=== PATIENT | male | born 1950 | race Caucasian/White ===

== ENCOUNTER 2016-11-20 21:31 | Inpatient (IN) | payer MEDICARE ==
[~2016-11-20] VITALS: Ht 172.7 cm; Wt 112.0 kg
[~2016-11-20 21:31] MED LIST: ASPI81TA2 PO; ATOR40TA PO; CAPT25TA3 PO; CARV25TA2 PO; FEBU40TA PO; FLUT1DIS3 IH; MONT10TA22 PO; POTA-10 PO; ROFL500T PO; SPIR25TA4 PO; TIOT18CA3 INH
[2016-11-20] MEDS ORDERED: IPRATROPIUM NEB FS 0.5 MG/2.5 ML AMPUL.NEB ONE (21:41)
[2016-11-20] MEDS ORDERED: ALBUTEROL FS 2.5 MG/3 ML VIAL.NEB ONE (21:41)
[2016-11-20] MEDS ORDERED: ASPIRIN 325 MG TABLET ONE (21:42)
[2016-11-20] MEDS ORDERED: methylPREDNISolone SOD SUCC 125 MG/2ML VIAL ONE (21:42)
[2016-11-20 21:59] LABS: BASOPHILS # (AUTO) 0.1 /CMM (0.0-0.2); BASOPHILS % (AUTO) 1.2 % (0.0-2.0); DIFF TOTAL % 100 %; EOSINOPHILS # (AUTO) 0.1 /CMM (0.0-0.7); EOSINOPHILS % (AUTO) 1.4 % (0.0-6.0); HEMATOCRIT 47 % (39-51); HEMOGLOBIN 15.2 g/dL (13.5-17.5); LYMPHOCYTES # (AUTO) 1.2 /CMM (0.8-4.8); LYMPHOCYTES % (AUTO) 15.3 % (20.0-44.0); MEAN CORPUSCULAR HEMOGLOBIN 30 PG (26.0-33.0); MEAN CORPUSCULAR HGB CONC 33 g/dl (31.0-36.0); MEAN CORPUSCULAR VOLUME 91 fL (80-96); MONOCYTES # (AUTO) 0.9 /CMM (0.1-1.30); NEUTROPHILS # (AUTO) 5.5 /CMM (1.8-8.9); NEUTROPHILS % (AUTO) 71.1 % (43.0-81.0); PLATELET COUNT (AUTO) 225 /CMM (150-450); RED BLOOD CELL COUNT(AUTO) 5.14 MIL/uL (4.5-6.0); WHITE BLOOD COUNT (AUTO) 7.8 K/uL (4.3-11.0)
[2016-11-20] MEDS ORDERED: ALBUTEROL FS 2.5 MG/3 ML VIAL.NEB CONTNEB ONE (22:00)
[2016-11-20] MEDS ORDERED: methylPREDNISolone SOD SUCC 125 MG/2ML VIAL IV ONE (22:00)
[2016-11-20] MEDS ORDERED: IPRATROPIUM NEB FS 0.5 MG/2.5 ML AMPUL.NEB NEB ONE (22:00)
[2016-11-20] MEDS ORDERED: ASPIRIN 325 MG TABLET PO ONE (22:00)
[2016-11-20 22:13] LABS: INR 1.07 (0.87-1.13); PROTHROMBIN TIME 11.6 SECS (9.5-12.7)
[2016-11-20] MEDS ORDERED: FUROSEMIDE 40 MG/4 ML VIAL ONE (22:17)
[2016-11-20 22:19] LABS: TROPONIN I 0.085 ng/mL (0.00-0.056)
[2016-11-20 22:21] LABS: ALBUMIN 3.5 g/dL (3.4-5.0); BILIRUBIN,DIRECT 0.4 mg/dL (0.0-0.2); BILIRUBIN,TOTAL 2.1 mg/dL (0.2-1.0); CALCIUM, SERUM 8.8 mg/dL (8.5-10.1); CREATININE 2.2 mg/dL (0.6-1.3); INDIRECT BILIRUBIN 1.7 mg/dL (0.0-1.1); TOTAL PROTEIN, SERUM 7.1 g/dL (6.4-8.2)
[2016-11-20 22:22] LABS: POTASSIUM 6.3 mmol/L (3.5-5.1)
[2016-11-20] MEDS ORDERED: SODIUM POLYSTYRENE SULFONATE 15 G/60 ML BOTTLE PO ONE (22:30)
[2016-11-20] MEDS ORDERED: DEXTROSE 50%-WATER 50 ML DISP.SYRIN IV ONE (22:30)
[2016-11-20] MEDS ORDERED: ALBUTEROL FS 2.5 MG/3 ML VIAL.NEB NEB ONE (22:30)
[2016-11-20] MEDS ORDERED: FUROSEMIDE 40 MG/4 ML VIAL IV ONE (22:30)
[2016-11-20] MEDS ORDERED: SODIUM BICARBONATE SYR 50 MEQ/50 ML DISP.SYRIN IV ONE (22:30)
[2016-11-20] MEDS ORDERED: INSULIN REGULAR, HUMAN 100 UNIT/ML 10 ML VIAL IV ONE (22:30)
[2016-11-20] MEDS ORDERED: CALCIUM CHLORIDE 1,000 MG/10 ML DISP.SYRIN IV ONE (22:30)
[2016-11-20] MEDS ORDERED: SODIUM POLYSTYRENE SULFONATE 15 G/60 ML BOTTLE ONE (22:32)
[2016-11-20] MEDS ORDERED: CALCIUM CHLORIDE 1,000 MG/10 ML DISP.SYRIN ONE (22:33)
[2016-11-20] MEDS ORDERED: DEXTROSE 50%-WATER 50 ML DISP.SYRIN ONE (22:33)
[2016-11-20] MEDS ORDERED: SODIUM BICARBONATE SYR 50 MEQ/50 ML DISP.SYRIN ONE (22:33)
[2016-11-20] MEDS ORDERED: INSULIN REGULAR, HUMAN 100 UNIT/ML 10 ML VIAL ONE (22:33)
[2016-11-20] MEDS ORDERED: LORAZEPAM INJ 2 MG/ML VIAL ONE (22:36)
[2016-11-20] MEDS ORDERED: LIDOCAINE 2% JEL UROJET 10 ML MM ONE ×2 (22:41→23:00)
[2016-11-20 22:52] VITALS: BP 111/63
[2016-11-20] MEDS ORDERED: LORAZEPAM INJ 2 MG/ML VIAL IV ONE (23:00)
[2016-11-20 23:23] LABS: LACTIC ACID 5.1 mmol/L (0.4-2.0)
[2016-11-20] MEDS ORDERED: ALBUTEROL FS 2.5 MG/3 ML VIAL.NEB NEB PRN (23:30)
[2016-11-20] MEDS ORDERED: IPRATROPIUM NEB FS 0.5 MG/2.5 ML AMPUL.NEB NEB PRN (23:30)
[2016-11-20 23:36] LABS: KETONES,URINE NEGATIVE (NEGATIVE); LEUKOCYTE ESTERASE ,URINE NEGATIVE (NEGATIVE)
[2016-11-20 23:39] LABS: ADD UA MICROSCOPIC YES
[2016-11-20 23:40] LABS: ABG BASE EXCESS -1.9 mmol/L; ABG HCO3 22.8 mmol/L; ABG PCO2 39.2 mmHg (35.0-45.0); ABG PH 7.383 (7.350-7.450); ABG PO2 144.5 mmHg (75.0-100.0); ABG TOTAL HEMOGLOBIN 15.9 G/dL (13.5-18.0); ALLEN TEST Pass; AaDO2 240.2 mmHg; O2Hb 96.6 % (94.0-97.0)
[2016-11-20 23:44] LABS: ADD URINE CULTURE NO; WBC,URINE 0-2 /HPF (0-3)
[2016-11-20 23:57] LABS: *LACTIC ACID REFLEX FLAG YES
[2016-11-21] VITALS (31 sets, daily range): BP systolic 91–124; BP diastolic 45–81
[2016-11-21] MEDS: methylPREDNISolone SOD SUCC 40 MG/ML VIAL IV SCH ×3 (04:28→20:33)
[2016-11-21 06:03] LABS: CALCIUM, SERUM 9.6 mg/dL (8.5-10.1); CREATININE 2.3 mg/dL (0.6-1.3); POTASSIUM 4.4 mmol/L (3.5-5.1)
[2016-11-21 06:29] LABS: LACTIC ACID 1.7 mmol/L (0.4-2.0)
[2016-11-21] MEDS: ATORVASTATIN 40 MG TABLET PO SCH (08:58)
[2016-11-21] MEDS: MONTELUKAST SODIUM (10MG) 10 MG TABLET PO SCH (08:58)
[2016-11-21] MEDS: ASPIRIN 81 MG TAB.CHEW PO SCH (08:59)
[2016-11-21] MEDS: HEPARIN SODIUM, PORCINE 5000 UNITS/1 ML VIAL SQ SCH ×2 (08:59→17:28)
[2016-11-21] MEDS ORDERED: FLUTICASONE/SALMETEROL DISKUS IH SCH (09:00)
[2016-11-21] MEDS ORDERED: CARVEDILOL 12.5 MG TABLET PO SCH (09:00)
[2016-11-21] MEDS ORDERED: FUROSEMIDE 40 MG/4 ML VIAL IV SCH (09:00)
[2016-11-21 09:19] LABS: THYROID STIMULATING HORMONE 1.267 uIU/mL (0.358-3.74)
[2016-11-22] VITALS (17 sets, daily range): BP systolic 98–149; BP diastolic 55–75
[2016-11-22 05:05] LABS: DIFF TOTAL % 100 %; EOSINOPHILS % (AUTO) 0.1 % (0.0-6.0); HEMATOCRIT 48 % (39-51); HEMOGLOBIN 15.2 g/dL (13.5-17.5); LYMPHOCYTES # (AUTO) 0.6 /CMM (0.8-4.8); LYMPHOCYTES % (AUTO) 3.9 % (20.0-44.0); MEAN CORPUSCULAR HEMOGLOBIN 29 PG (26.0-33.0); MEAN CORPUSCULAR HGB CONC 32 g/dl (31.0-36.0); MEAN CORPUSCULAR VOLUME 91 fL (80-96); MONOCYTES % (AUTO) 5.8 % (2.0-12.0); NEUTROPHILS # (AUTO) 15.1 /CMM (1.8-8.9); NEUTROPHILS % (AUTO) 90.2 % (43.0-81.0); PLATELET COUNT (AUTO) 190 /CMM (150-450); RED BLOOD CELL COUNT(AUTO) 5.24 MIL/uL (4.5-6.0); WHITE BLOOD COUNT (AUTO) 16.7 K/uL (4.3-11.0)
[2016-11-22 05:18] LABS: TROPONIN I 0.123 ng/mL (0.00-0.056)
[2016-11-22 05:25] LABS: ALBUMIN 3.5 g/dL (3.4-5.0); BILIRUBIN,TOTAL 2.2 mg/dL (0.2-1.0); CALCIUM, SERUM 9.3 mg/dL (8.5-10.1); POTASSIUM 4.4 mmol/L (3.5-5.1); TOTAL PROTEIN, SERUM 6.9 g/dL (6.4-8.2)
[2016-11-22] MEDS: methylPREDNISolone SOD SUCC 40 MG/ML VIAL IV SCH ×3 (05:30→22:02)
[2016-11-22] MEDS: HEPARIN SODIUM, PORCINE 5000 UNITS/1 ML VIAL SQ SCH ×2 (08:16→17:53)
[2016-11-22] MEDS: ATORVASTATIN 40 MG TABLET PO SCH (08:17)
[2016-11-22] MEDS: MONTELUKAST SODIUM (10MG) 10 MG TABLET PO SCH (08:17)
[2016-11-22] MEDS: ASPIRIN 81 MG TAB.CHEW PO SCH (08:17)
[2016-11-22] MEDS: FUROSEMIDE 100 MG/10 ML VIAL IV SCH ×3 (09:00→17:54)
[2016-11-23] VITALS: BP_SYST 110; BP_SYST 57; BP_DIAS 57; BP_DIAS 61
[2016-11-23 04:00] VITALS: BP 102/58
[2016-11-23] MEDS: methylPREDNISolone SOD SUCC 40 MG/ML VIAL IV SCH ×2 (05:04→12:23)
[2016-11-23 06:45] LABS: BASOPHILS % (AUTO) 0.1 % (0.0-2.0); DIFF TOTAL % 100 %; EOSINOPHILS % (AUTO) 0.1 % (0.0-6.0); HEMATOCRIT 49 % (39-51); HEMOGLOBIN 15.7 g/dL (13.5-17.5); LYMPHOCYTES # (AUTO) 0.8 /CMM (0.8-4.8); LYMPHOCYTES % (AUTO) 4.5 % (20.0-44.0); MEAN CORPUSCULAR HEMOGLOBIN 29 PG (26.0-33.0); MEAN CORPUSCULAR HGB CONC 32 g/dl (31.0-36.0); MEAN CORPUSCULAR VOLUME 91 fL (80-96); MONOCYTES # (AUTO) 0.9 /CMM (0.1-1.30); MONOCYTES % (AUTO) 5.1 % (2.0-12.0); NEUTROPHILS # (AUTO) 16.5 /CMM (1.8-8.9); NEUTROPHILS % (AUTO) 90.2 % (43.0-81.0); PLATELET COUNT (AUTO) 244 /CMM (150-450); RED BLOOD CELL COUNT(AUTO) 5.37 MIL/uL (4.5-6.0); WHITE BLOOD COUNT (AUTO) 18.3 K/uL (4.3-11.0)
[2016-11-23 07:02] LABS: ALBUMIN 3.4 g/dL (3.4-5.0); BILIRUBIN,TOTAL 1.6 mg/dL (0.2-1.0); CALCIUM, SERUM 9.2 mg/dL (8.5-10.1); PHOSPHORUS 4.8 mg/dL (2.5-4.9); POTASSIUM 4.4 mmol/L (3.5-5.1)
[2016-11-23 08:00] VITALS: BP 119/53
[2016-11-23] MEDS: MONTELUKAST SODIUM (10MG) 10 MG TABLET PO SCH (08:19)
[2016-11-23] MEDS: HEPARIN SODIUM, PORCINE 5000 UNITS/1 ML VIAL SQ SCH (08:19)
[2016-11-23] MEDS: ATORVASTATIN 40 MG TABLET PO SCH (08:21)
[2016-11-23] MEDS: ASPIRIN 81 MG TAB.CHEW PO SCH (08:22)
[2016-11-23] MEDS ORDERED: FUROSEMIDE 40 MG TABLET PO SCH (09:00)
[2016-11-23 12:27] VITALS: BP 146/64
== END 2016-11-23 14:01 | disposition home or self-care (01) | DRG 280 ==
LOC: ER 21:32 → ICU 22:44 → TELE 11-22 11:07 → MED 11-23 11:06
PROVIDERS: ADMIT Nurse Practitioner Acute Care; ATTEND Nurse Practitioner Acute Care
PROC: 5A09357 Assistance with Respiratory Ventilation, Less than 24 Consecutive Hours, Continuous Positive Airway Pressure (ICD-10-PCS; principal; 2016-11-21)
DX: I13.0 Hypertensive heart and chronic kidney disease with heart failure and stage 1 through stage 4 chronic kidney disease, or unspecified chronic kidney disease (principal); J96.01 Acute respiratory failure with hypoxia; I21.4 Non-ST elevation (NSTEMI) myocardial infarction; I50.23 Acute on chronic systolic (congestive) heart failure; K72.00 Acute and subacute hepatic failure without coma; N17.9 Acute kidney failure, unspecified; J98.11 Atelectasis; E66.2 Morbid (severe) obesity with alveolar hypoventilation; E87.2 Acidosis; I25.10 Atherosclerotic heart disease of native coronary artery without angina pectoris; K76.1 Chronic passive congestion of liver; N18.9 Chronic kidney disease, unspecified; J44.9 Chronic obstructive pulmonary disease, unspecified; E78.5 Hyperlipidemia, unspecified; E87.5 Hyperkalemia; Z87.891 Personal history of nicotine dependence; Z68.37 Body mass index [BMI] 37.0-37.9, adult; D72.829 Elevated white blood cell count, unspecified; T50.0X5A Adverse effect of mineralocorticoids and their antagonists, initial encounter
CPT/HCPCS: 36415; 36600; 71010-TC; 80048-TC; 80053-TC; 80061-TC; 80076-TC; 81000-TC; 82306; 83605-TC; 83735-TC; 83880; 84100-TC; 84439-TC; 84443-TC; 84484-TC; 85025-TC; 85730-TC; 87040-TC; 87081-TC; 93307-TC; A4606; J1644; J1815; J1940; J2060; J2920; J2930; J3490; Z7610

== ENCOUNTER 2016-12-02 09:10 | Inpatient (IN) | payer MEDICARE ==
[~2016-12-02] VITALS: Ht 177.8 cm; Wt 108.0 kg
[2016-12-02] MEDS ORDERED: methylPREDNISolone SOD SUCC 125 MG/2ML VIAL ONE (09:17)
[2016-12-02] MEDS ORDERED: ALBUTEROL FS 2.5 MG/3 ML VIAL.NEB ONE (09:25)
[2016-12-02] MEDS ORDERED: IPRATROPIUM NEB FS 0.5 MG/2.5 ML AMPUL.NEB ONE (09:25)
[2016-12-02] MEDS ORDERED: NITROGLYCERIN PACKET 1 GM PACKET TD ONE (09:30)
[2016-12-02] MEDS ORDERED: FUROSEMIDE 40 MG/4 ML VIAL IV ONE (09:30)
[2016-12-02] MEDS ORDERED: IPRATROPIUM NEB FS 0.5 MG/2.5 ML AMPUL.NEB NEB ONE (09:30)
[2016-12-02] MEDS ORDERED: ALBUTEROL FS 2.5 MG/3 ML VIAL.NEB NEB ONE (09:30)
[2016-12-02] MEDS ORDERED: methylPREDNISolone SOD SUCC 125 MG/2ML VIAL IV ONE (09:30)
[2016-12-02] MEDS ORDERED: ASPIRIN 325 MG TABLET PO ONE (09:30)
[2016-12-02 09:40] LABS: BASOPHILS # (AUTO) 0.1 /CMM (0.0-0.2); BASOPHILS % (AUTO) 0.5 % (0.0-2.0); DIFF TOTAL % 100 %; EOSINOPHILS % (AUTO) 0.3 % (0.0-6.0); HEMATOCRIT 44 % (39-51); HEMOGLOBIN 14.1 g/dL (13.5-17.5); LYMPHOCYTES # (AUTO) 1.2 /CMM (0.8-4.8); LYMPHOCYTES % (AUTO) 9.2 % (20.0-44.0); MEAN CORPUSCULAR HEMOGLOBIN 29 PG (26.0-33.0); MEAN CORPUSCULAR HGB CONC 33 g/dl (31.0-36.0); MEAN CORPUSCULAR VOLUME 89 fL (80-96); MONOCYTES # (AUTO) 0.9 /CMM (0.1-1.30); NEUTROPHILS # (AUTO) 10.7 /CMM (1.8-8.9); PLATELET COUNT (AUTO) 265 /CMM (150-450); RED BLOOD CELL COUNT(AUTO) 4.89 MIL/uL (4.5-6.0); WHITE BLOOD COUNT (AUTO) 12.9 K/uL (4.3-11.0)
[2016-12-02] MEDS ORDERED: ASPIRIN 325 MG TABLET ONE (09:47)
[2016-12-02] MEDS ORDERED: NITROGLYCERIN PACKET 1 GM PACKET ONE (09:47)
[2016-12-02] MEDS ORDERED: FUROSEMIDE 40 MG/4 ML VIAL ONE (09:48)
[2016-12-02 09:50] LABS: CREATININE 1.9 mg/dL (0.6-1.3); POTASSIUM 5.2 mmol/L (3.5-5.1)
[2016-12-02 09:57] LABS: TROPONIN I 0.046 ng/mL (0.00-0.056)
[2016-12-02] MEDS ORDERED: AZITHROMYCIN 500 MG in IV D5W 250 ML IV ONE (10:00)
[2016-12-02] MEDS ORDERED: CEFTRIAXONE 1GM BAG (ER ONLY) 50 ML IV ONE ×2 (10:00→10:16)
[2016-12-02 10:01] LABS: INR 1.07 (0.87-1.13); PROTHROMBIN TIME 11.6 SECS (9.5-12.7)
[2016-12-02 10:03] LABS: ALBUMIN 2.9 g/dL (3.4-5.0); BILIRUBIN,DIRECT 0.4 mg/dL (0.0-0.2); BILIRUBIN,TOTAL 1.7 mg/dL (0.2-1.0); INDIRECT BILIRUBIN 1.3 mg/dL (0.0-1.1); TOTAL PROTEIN, SERUM 6.8 g/dL (6.4-8.2)
[2016-12-02 10:07] LABS: LACTIC ACID 1.8 mmol/L (0.4-2.0)
[2016-12-02] MEDS ORDERED: FURO40TA5 PO (10:13)
[2016-12-02] MEDS ORDERED: IV SET PRIMARY PUMP SET 1 EA INFUS.SET MC ONE ×3 (10:16→13:23)
[2016-12-02] MEDS ORDERED: MAGNESIUM HYDROXIDE 30 ML UDC PO PRN (10:30)
[2016-12-02] MEDS ORDERED: HYDROCODONE/APAP 5/325MG 1 EACH TABLET PO PRN (10:30)
[2016-12-02] MEDS ORDERED: ONDANSETRON HCL/PF 4 MG/2 ML VIAL IVP PRN (10:30)
[2016-12-02] MEDS ORDERED: Z GUARD REMEDY 2 OZ OINT TP PRN (10:30)
[2016-12-02] MEDS ORDERED: MAG HYDROX/AL HYDROX/SIMETH 30 ML UDC PO PRN (10:30)
[2016-12-02] MEDS ORDERED: ACETAMINOPHEN 325 MG TABLET PO PRN (10:30)
[2016-12-02] MEDS ORDERED: BUMETANIDE INJ 8 MG in IV NS 0.9% 48 ML IV ONE (13:00)
[2016-12-02] MEDS: methylPREDNISolone SOD SUCC 40 MG/ML VIAL IV SCH ×2 (13:21→17:34)
[2016-12-02 16:00] VITALS: BP 115/58
[2016-12-02] MEDS ORDERED: CAPTOPRIL 12.5 MG TABLET PO SCH (17:00)
[2016-12-02] MEDS: CARVEDILOL 12.5 MG TABLET PO SCH (17:36)
[2016-12-02] MEDS: IPRATROPIUM NEB FS 0.5 MG/2.5 ML AMPUL.NEB NEB SCH (20:15)
[2016-12-02 20:25] VITALS: BP 101/61
[2016-12-02] MEDS ORDERED: ZOLPIDEM TARTRATE 5 MG TABLET PO PRN (22:00)
[2016-12-03] VITALS: BP 103/56
[2016-12-03 01:03] LABS: KETONES,URINE NEGATIVE (NEGATIVE); LEUKOCYTE ESTERASE ,URINE TRACE (NEGATIVE)
[2016-12-03 01:10] LABS: ADD UA MICROSCOPIC YES
[2016-12-03 01:14] LABS: RBC,URINE NONE SEEN /HPF (0-2)
[2016-12-03 01:15] LABS: ADD URINE CULTURE NO; HYALINE CASTS, URINE Rare /LPF (None Seen); MUCUS,URINE Rare /LPF (None Seen); WBC,URINE 0-3 /HPF (0-3)
[2016-12-03] MEDS: IPRATROPIUM NEB FS 0.5 MG/2.5 ML AMPUL.NEB NEB SCH ×4 (01:42→20:39)
[2016-12-03 04:07] VITALS: BP 92/51
[2016-12-03 06:41] VITALS: BP 107/52
[2016-12-03 07:07] LABS: BASOPHILS % (AUTO) 0.1 % (0.0-2.0); DIFF TOTAL % 100 %; EOSINOPHILS % (AUTO) 0.1 % (0.0-6.0); HEMATOCRIT 42 % (39-51); HEMOGLOBIN 13.7 g/dL (13.5-17.5); LYMPHOCYTES # (AUTO) 0.7 /CMM (0.8-4.8); LYMPHOCYTES % (AUTO) 5.2 % (20.0-44.0); MEAN CORPUSCULAR HEMOGLOBIN 29 PG (26.0-33.0); MEAN CORPUSCULAR HGB CONC 33 g/dl (31.0-36.0); MEAN CORPUSCULAR VOLUME 89 fL (80-96); MONOCYTES # (AUTO) 0.2 /CMM (0.1-1.30); MONOCYTES % (AUTO) 1.5 % (2.0-12.0); NEUTROPHILS # (AUTO) 12.2 /CMM (1.8-8.9); NEUTROPHILS % (AUTO) 93.1 % (43.0-81.0); PLATELET COUNT (AUTO) 263 /CMM (150-450); RED BLOOD CELL COUNT(AUTO) 4.75 MIL/uL (4.5-6.0); WHITE BLOOD COUNT (AUTO) 13.1 K/uL (4.3-11.0)
[2016-12-03 07:45] LABS: CALCIUM, SERUM 9.4 mg/dL (8.5-10.1); PHOSPHORUS 4.2 mg/dL (2.5-4.9); POTASSIUM 4.6 mmol/L (3.5-5.1)
[2016-12-03 08:00] VITALS: BP 133/74
[2016-12-03 08:06] LABS: TROPONIN I 0.047 ng/mL (0.00-0.056)
[2016-12-03] MEDS: CARVEDILOL 12.5 MG TABLET PO SCH ×2 (08:32→17:16)
[2016-12-03] MEDS: AZITHROMYCIN 250 MG TABLET PO SCH (08:32)
[2016-12-03] MEDS: ATORVASTATIN 40 MG TABLET PO SCH (08:32)
[2016-12-03] MEDS: PANTOPRAZOLE 40 MG TABLET.DR PO SCH (08:32)
[2016-12-03] MEDS: ASPIRIN 81 MG TAB.CHEW PO SCH (08:33)
[2016-12-03] MEDS: methylPREDNISolone SOD SUCC 40 MG/ML VIAL IV SCH ×2 (08:33→17:15)
[2016-12-03] MEDS: MONTELUKAST SODIUM (10MG) 10 MG TABLET PO SCH (08:33)
[2016-12-03] MEDS: FLUTICASONE/SALMETEROL DISKUS IH SCH (08:37)
[2016-12-03] MEDS: CEFTRIAXONE 1 G in IV D5W 50 ML IV SCH (08:37)
[2016-12-03 08:53] LABS: ALBUMIN 2.7 g/dL (3.4-5.0); BILIRUBIN,TOTAL 1.3 mg/dL (0.2-1.0); TOTAL PROTEIN, SERUM 6.4 g/dL (6.4-8.2)
[2016-12-03] MEDS ORDERED: SECONDARY IV SET 1 EA INFUS.SET MC ONE (08:55)
[2016-12-03] MEDS ORDERED: SPIRONOLACTONE 25 MG TABLET PO SCH (09:00)
[2016-12-03] MEDS ORDERED: FUROSEMIDE 40 MG/4 ML VIAL IV SCH (09:00)
[2016-12-03 16:00] VITALS: BP 119/70
[2016-12-03 20:00] VITALS: BP 115/65
[2016-12-04] MEDS: IPRATROPIUM NEB FS 0.5 MG/2.5 ML AMPUL.NEB NEB SCH ×3 (01:30→13:30)
[2016-12-04 07:41] LABS: BASOPHILS % (AUTO) 0.2 % (0.0-2.0); DIFF TOTAL % 100 %; EOSINOPHILS % (AUTO) 0.2 % (0.0-6.0); HEMATOCRIT 43 % (39-51); HEMOGLOBIN 14.1 g/dL (13.5-17.5); LYMPHOCYTES # (AUTO) 0.7 /CMM (0.8-4.8); LYMPHOCYTES % (AUTO) 3.4 % (20.0-44.0); MEAN CORPUSCULAR HEMOGLOBIN 29 PG (26.0-33.0); MEAN CORPUSCULAR HGB CONC 33 g/dl (31.0-36.0); MEAN CORPUSCULAR VOLUME 89 fL (80-96); MONOCYTES # (AUTO) 0.7 /CMM (0.1-1.30); MONOCYTES % (AUTO) 3.7 % (2.0-12.0); NEUTROPHILS # (AUTO) 18.5 /CMM (1.8-8.9); NEUTROPHILS % (AUTO) 92.5 % (43.0-81.0); PLATELET COUNT (AUTO) 309 /CMM (150-450); RED BLOOD CELL COUNT(AUTO) 4.88 MIL/uL (4.5-6.0)
[2016-12-04 08:00] VITALS: BP 115/72
[2016-12-04 08:03] LABS: CALCIUM, SERUM 9.8 mg/dL (8.5-10.1); CREATININE 1.8 mg/dL (0.6-1.3); POTASSIUM 4.9 mmol/L (3.5-5.1)
[2016-12-04] MEDS: methylPREDNISolone SOD SUCC 40 MG/ML VIAL IV SCH (08:27)
[2016-12-04] MEDS: CEFTRIAXONE 1 G in IV D5W 50 ML IV SCH (08:27)
[2016-12-04] MEDS: FLUTICASONE/SALMETEROL DISKUS IH SCH (08:39)
[2016-12-04 08:40] VITALS: BP 154/84
[2016-12-04] MEDS: CARVEDILOL 12.5 MG TABLET PO SCH (08:40)
[2016-12-04] MEDS: ATORVASTATIN 40 MG TABLET PO SCH (08:40)
[2016-12-04] MEDS: AZITHROMYCIN 250 MG TABLET PO SCH (08:40)
[2016-12-04] MEDS: MONTELUKAST SODIUM (10MG) 10 MG TABLET PO SCH (08:40)
[2016-12-04] MEDS: PANTOPRAZOLE 40 MG TABLET.DR PO SCH (08:40)
[2016-12-04] MEDS: ASPIRIN 81 MG TAB.CHEW PO SCH (08:40)
[2016-12-04] MEDS ORDERED: FUROSEMIDE 40 MG TABLET PO SCH (09:00)
[2016-12-04] MEDS ORDERED: ALBU1.257 NEB (10:14)
[2016-12-04] MEDS ORDERED: LEVO500T15 PO (10:15)
[2016-12-04] MEDS ORDERED: PRED20TA PO (10:23)
== END 2016-12-04 13:30 | disposition home or self-care (01) | DRG 291 ==
LOC: ER 09:13 → EDBD 09:13 → TELE 10:34 → MED 12-03 11:04
PROVIDERS: ADMIT Student in an Organized Health Care Education/Training Program; ATTEND Student in an Organized Health Care Education/Training Program
DX: I13.0 Hypertensive heart and chronic kidney disease with heart failure and stage 1 through stage 4 chronic kidney disease, or unspecified chronic kidney disease (principal); J15.9 Unspecified bacterial pneumonia; J96.01 Acute respiratory failure with hypoxia; I50.23 Acute on chronic systolic (congestive) heart failure; N17.0 Acute kidney failure with tubular necrosis; J44.1 Chronic obstructive pulmonary disease with (acute) exacerbation; E66.2 Morbid (severe) obesity with alveolar hypoventilation; J44.0 Chronic obstructive pulmonary disease with (acute) lower respiratory infection; E11.22 Type 2 diabetes mellitus with diabetic chronic kidney disease; N18.9 Chronic kidney disease, unspecified; E87.5 Hyperkalemia; E78.5 Hyperlipidemia, unspecified; I25.10 Atherosclerotic heart disease of native coronary artery without angina pectoris; I27.2 Other secondary pulmonary hypertension; Z87.891 Personal history of nicotine dependence; Z68.34 Body mass index [BMI] 34.0-34.9, adult; D72.829 Elevated white blood cell count, unspecified
CPT/HCPCS: 36415; 71010-TC; 80048-TC; 80053-TC; 80061-TC; 80076-TC; 81000-TC; 83605-TC; 83735-TC; 83880; 84100-TC; 84484-TC; 85025-TC; 85730-TC; 87040-TC; 87070-TC; 87081-TC; 87400; 94799-TC; A4216; A4606; J0456; J0696; J1940; J2920; J2930; J3490; J7060; Z7610

== ENCOUNTER 2018-12-26 18:19 | Inpatient (IN) | payer MEDICARE ==
[~2018-12-26] VITALS: Ht 167.6 cm; Wt 112.6 kg
[~2018-12-26 18:19] MED LIST changes: +ALBU1.257 NEB; +ASPI-1169 PO; -ASPI81TA2 PO; -CAPT25TA3 PO; +FURO40TA5 PO; +LEVO500T75 PO; +PRED20TA PO; -SPIR25TA4 PO; +SPIR25TA6 PO
[2018-12-26] MEDS ORDERED: methylPREDNISolone SOD SUCC 125 MG/2ML VIAL ONE (18:57)
[2018-12-26] MEDS ORDERED: methylPREDNISolone SOD SUCC 125 MG/2ML VIAL IV ONE (19:00)
[2018-12-26] MEDS ORDERED: IPRATROPIUM NEB FS 0.5 MG/2.5 ML AMPUL.NEB NEB ONE (19:00)
[2018-12-26] MEDS ORDERED: ALBUTEROL FS 2.5 MG/3 ML VIAL.NEB NEB ONE (19:00)
[2018-12-26 19:04] LABS: BASOPHILS # (AUTO) 0.1 /CMM (0.0-0.2); BASOPHILS % (AUTO) 1.2 % (0.0-2.0); HEMATOCRIT 44 % (39-51); HEMOGLOBIN 14.5 g/dL (13.5-17.5); LYMPHOCYTES # (AUTO) 1.1 /CMM (0.8-4.8); LYMPHOCYTES % (AUTO) 13.7 % (20.0-44.0); MEAN CORPUSCULAR HGB CONC 33 g/dl (31.0-36.0); MEAN CORPUSCULAR VOLUME 93 fL (80-96); MONOCYTES # (AUTO) 1.4 /CMM (0.1-1.30); MONOCYTES % (AUTO) 18.3 % (2.0-12.0); NEUTROPHILS % (AUTO) 64.8 % (43.0-81.0); PLATELET COUNT (AUTO) 193 /CMM (150-450); RED BLOOD CELL COUNT(AUTO) 4.78 MIL/uL (4.5-6.0); WHITE BLOOD COUNT (AUTO) 7.7 K/uL (4.3-11.0)
[2018-12-26] MEDS ORDERED: ALBUTEROL FS 2.5 MG/3 ML VIAL.NEB ONE (19:11)
[2018-12-26] MEDS ORDERED: IPRATROPIUM NEB FS 0.5 MG/2.5 ML AMPUL.NEB ONE (19:11)
[2018-12-26 19:13] LABS: CALCIUM, SERUM 9.3 mg/dL (8.5-10.1); CREATININE 2.2 mg/dL (0.6-1.3); POTASSIUM 5.2 mmol/L (3.5-5.1)
[2018-12-26 19:26] LABS: ALBUMIN 3.5 g/dL (3.4-5.0); BILIRUBIN,DIRECT 0.3 mg/dL (0.0-0.2); BILIRUBIN,TOTAL 1.4 mg/dL (0.2-1.0)
[2018-12-26] MEDS ORDERED: FUROSEMIDE 40 MG/4 ML VIAL ONE (20:11)
[2018-12-26] MEDS ORDERED: NITROGLYCERIN PACKET 1 GM PACKET ONE (20:11)
[2018-12-26] MEDS ORDERED: NITROGLYCERIN PACKET 1 GM PACKET TD ONE (20:30)
[2018-12-26] MEDS ORDERED: FUROSEMIDE 40 MG/4 ML VIAL IV ONE (20:30)
[2018-12-26 21:00] VITALS: BP 98/56
[2018-12-26] MEDS ORDERED: HYDROCODONE/APAP 5/325MG 1 EACH TABLET PO PRN (22:00)
[2018-12-26] MEDS ORDERED: MORPHINE SULFATE INJ 2 MG/ML DISP.SYRIN IV PRN (22:00)
[2018-12-26] MEDS ORDERED: MAG HYDROX/AL HYDROX/SIMETH 30 ML UDC PO PRN ×2 (22:00)
[2018-12-26] MEDS ORDERED: Z GUARD REMEDY 2 OZ OINT TP PRN (22:00)
[2018-12-26] MEDS ORDERED: ACETAMINOPHEN 325 MG TABLET PO PRN (22:00)
[2018-12-26] MEDS ORDERED: ONDANSETRON HCL/PF 4 MG/2 ML VIAL IVP PRN ×2 (22:00)
[2018-12-26] MEDS ORDERED: NITROGLYCERIN 0.4 MG/TAB BOTTLE SL PRN (22:00)
[2018-12-26] MEDS ORDERED: MAGNESIUM HYDROXIDE 30 ML UDC PO PRN (22:00)
[2018-12-26] MEDS ORDERED: DOCUSATE SODIUM 100 MG CAPSULE PO PRN (22:00)
[2018-12-26] MEDS ORDERED: WARF5TAB77 PO (23:54)
[2018-12-27] VITALS (7 sets, daily range): BP systolic 97–112; BP diastolic 56–69
[2018-12-27] MEDS: ALBUTEROL FS 2.5 MG/0.5 ML VIAL.NEB NEB SCH ×4 (01:41→19:23)
[2018-12-27] MEDS: IPRATROPIUM NEB FS 0.5 MG/2.5 ML AMPUL.NEB NEB SCH ×4 (01:42→19:23)
[2018-12-27 03:34] LABS: BASOPHILS % (AUTO) 0.5 % (0.0-2.0); EOSINOPHILS % (AUTO) 0.1 % (0.0-6.0); HEMATOCRIT 43 % (39-51); HEMOGLOBIN 14.3 g/dL (13.5-17.5); LYMPHOCYTES # (AUTO) 0.5 /CMM (0.8-4.8); LYMPHOCYTES % (AUTO) 7.8 % (20.0-44.0); MEAN CORPUSCULAR HGB CONC 33 g/dl (31.0-36.0); MEAN CORPUSCULAR VOLUME 91 fL (80-96); MONOCYTES # (AUTO) 0.1 /CMM (0.1-1.30); MONOCYTES % (AUTO) 1.9 % (2.0-12.0); NEUTROPHILS # (AUTO) 5.5 /CMM (1.8-8.9); NEUTROPHILS % (AUTO) 89.7 % (43.0-81.0); PLATELET COUNT (AUTO) 182 /CMM (150-450); RED BLOOD CELL COUNT(AUTO) 4.69 MIL/uL (4.5-6.0); WHITE BLOOD COUNT (AUTO) 6.2 K/uL (4.3-11.0)
[2018-12-27 03:49] LABS: CALCIUM, SERUM 9.3 mg/dL (8.5-10.1); CREATININE 2.1 mg/dL (0.6-1.3); MAGNESIUM 1.7 mg/dL (1.8-2.4); POTASSIUM 5.3 mmol/L (3.5-5.1)
[2018-12-27 03:59] LABS: THYROID STIMULATING HORMONE 0.914 uIU/mL (0.358-3.74)
[2018-12-27] MEDS ORDERED: IV NS 0.9% 500 ML IV ONE (05:00)
[2018-12-27] MEDS ORDERED: FUROSEMIDE 40 MG/4 ML VIAL IV SCH (09:00)
[2018-12-27] MEDS ORDERED: SPIRONOLACTONE 25 MG TABLET PO SCH (09:00)
[2018-12-27] MEDS ORDERED: ASPIRIN 325 MG TABLET PO SCH (09:00)
[2018-12-27] MEDS: CARVEDILOL 12.5 MG TABLET PO SCH ×2 (09:00→20:03)
[2018-12-27] MEDS ORDERED: FLUTICASONE/SALMETEROL DISKUS IH SCH (09:00)
[2018-12-27] MEDS: methylPREDNISolone SOD SUCC 40 MG/ML VIAL IV SCH ×2 (09:14→16:23)
[2018-12-27] MEDS: PANTOPRAZOLE 40 MG TABLET.DR PO SCH (09:14)
[2018-12-27] MEDS: MONTELUKAST SODIUM (10MG) 10 MG TABLET PO SCH (09:15)
[2018-12-27] MEDS: ATORVASTATIN 40 MG TABLET PO SCH (09:15)
[2018-12-27] MEDS: FLUTICASONE/VILANTEROL 1 EACH BLST.W.DEV IH SCH (09:16)
[2018-12-27] MEDS: Magnesium 1GM/D5W 100ML PREMIX 100 ML IV SCH ×2 (12:37→13:43)
[2018-12-27] MEDS: FEBUXOSTAT 40 MG PO SCH (14:32)
[2018-12-27] MEDS: FUROSEMIDE 40 MG TABLET PO SCH (16:25)
[2018-12-27] MEDS: CLOTRIMAZOLE/BETAMETASONE DIPROPIONATE 15 GM TUBE TP SCH (16:26)
[2018-12-27] MEDS ORDERED: WARFARIN SODIUM 5 MG TABLET PO SCH (17:00)
[2018-12-28 00:18] VITALS: BP 121/71
[2018-12-28] MEDS: IPRATROPIUM NEB FS 0.5 MG/2.5 ML AMPUL.NEB NEB SCH ×2 (01:01→08:37)
[2018-12-28] MEDS: ALBUTEROL FS 2.5 MG/0.5 ML VIAL.NEB NEB SCH ×2 (01:01→08:37)
[2018-12-28 04:37] VITALS: BP 106/66
[2018-12-28 07:45] LABS: CALCIUM, SERUM 10.3 mg/dL (8.5-10.1); CREATININE 1.8 mg/dL (0.6-1.3); MAGNESIUM 2.3 mg/dL (1.8-2.4); POTASSIUM 4.8 mmol/L (3.5-5.1)
[2018-12-28 08:00] VITALS: BP_SYST 114; BP_SYST 117; BP_DIAS 59; BP_DIAS 67
[2018-12-28] MEDS: MONTELUKAST SODIUM (10MG) 10 MG TABLET PO SCH (10:03)
[2018-12-28] MEDS: methylPREDNISolone SOD SUCC 40 MG/ML VIAL IV SCH (10:03)
[2018-12-28] MEDS: PANTOPRAZOLE 40 MG TABLET.DR PO SCH (10:03)
[2018-12-28] MEDS: FUROSEMIDE 40 MG TABLET PO SCH (10:04)
[2018-12-28] MEDS: ATORVASTATIN 40 MG TABLET PO SCH (10:04)
[2018-12-28 10:05] VITALS: BP 117/67
[2018-12-28] MEDS: CARVEDILOL 12.5 MG TABLET PO SCH (10:05)
[2018-12-28] MEDS: FEBUXOSTAT 40 MG PO SCH (10:06)
[2018-12-28] MEDS: FLUTICASONE/VILANTEROL 1 EACH BLST.W.DEV IH SCH (10:07)
[2018-12-28] MEDS: CLOTRIMAZOLE/BETAMETASONE DIPROPIONATE 15 GM TUBE TP SCH (10:11)
== END 2018-12-28 11:45 | disposition home or self-care (01) | DRG 291 ==
LOC: ER 18:22 → TELE 20:18 → MED 12-28 09:58
PROVIDERS: ADMIT Registered Nurse; ATTEND Nurse Practitioner Acute Care
DX: I13.0 Hypertensive heart and chronic kidney disease with heart failure and stage 1 through stage 4 chronic kidney disease, or unspecified chronic kidney disease (principal); J96.20 Acute and chronic respiratory failure, unspecified whether with hypoxia or hypercapnia; I50.43 Acute on chronic combined systolic (congestive) and diastolic (congestive) heart failure; N17.9 Acute kidney failure, unspecified; J44.1 Chronic obstructive pulmonary disease with (acute) exacerbation; Z68.41 Body mass index [BMI] 40.0-44.9, adult; N18.9 Chronic kidney disease, unspecified; E87.5 Hyperkalemia; I25.10 Atherosclerotic heart disease of native coronary artery without angina pectoris; E78.5 Hyperlipidemia, unspecified; E66.01 Morbid (severe) obesity due to excess calories; Z87.891 Personal history of nicotine dependence; I35.0 Nonrheumatic aortic (valve) stenosis; I48.0 Paroxysmal atrial fibrillation; Z79.01 Long term (current) use of anticoagulants; Z79.51 Long term (current) use of inhaled steroids; Z79.82 Long term (current) use of aspirin; Z79.899 Other long term (current) drug therapy; Z99.81 Dependence on supplemental oxygen
CPT/HCPCS: 36415; 71045-TC; 80048-TC; 80061-TC; 80076-TC; 83605-TC; 83735-TC; 83880; 84100-TC; 84443-TC; 84484-TC; 85025-TC; 85610-TC; 85730-TC; 87040-TC; 87081-TC; 93307-TC; 94799-TC; G0378; J1940; J2920; J2930; J3475; J7040

== ENCOUNTER 2022-07-27 08:14 | Inpatient (IN) | payer MEDICARE, OTHER ==
[~2022-07-27] VITALS: Ht 167.6 cm; Wt 97.5 kg
[~2022-07-27 08:14] MED LIST changes: -ALBU1.257 NEB; -ASPI-1169 PO; -LEVO500T75 PO; -POTA-10 PO; -PRED20TA PO; -ROFL500T PO; -SPIR25TA6 PO; -TIOT18CA3 INH; +WARF5TAB PO
--- NOTE | 2022-07-27 08:14 | NUR ---
BIB RA88 FROM HOME C/O L SIDED ABDOMINAL PAIN 01/18 +N/V XWEEKS WAS DIAGNOSED WITH KIDNEY INFECTION AND STATE PAIN HAS GOTTEN WORSE. PT STATED HE TOOKE TYLENOL THIS MORNING AT 0600. LAST NIGHT PAIN WAS 7/10. PT ATTCHED TO MONITOR, VITALS ARE WITHIN NORMAL LIMITS. WARM ABLNKET PROVIDED FOR COMFORT. URINAL AT BEDSIDE, PT UNABLE TO PROVIDE URINE AT THIS TIME.
[2022-07-27] MEDS ORDERED: ACETAMINOPHEN ES 500 MG TABLET ONE (08:28)
[2022-07-27] MEDS ORDERED: ACETAMINOPHEN ES 500 MG TABLET PO ONE (08:30)
[2022-07-27] MEDS ORDERED: IV NS 0.9% 1,000 ML BAG IV ONE (08:30)
--- NOTE | 2022-07-27 08:30 | NUR ---
IV ESTABLISHED R HAND 20G. LABS DRAWN AND COLLECTED AT BEDSIDE.
[2022-07-27 08:47] LABS: BASOPHILS % (AUTO) 0.5 % (0.0-2.0); EOSINOPHILS % (AUTO) 1.9 % (0.0-6.0); HEMATOCRIT 51 % (39-51); HEMOGLOBIN 16.7 g/dL (13.5-17.5); LYMPHOCYTES # (AUTO) 1.3 K/uL (0.8-4.8); LYMPHOCYTES % (AUTO) 14.6 % (20.0-44.0); MEAN CORPUSCULAR HGB CONC 33 g/dl (31.0-36.0); MEAN CORPUSCULAR VOLUME 91 fL (80-96); MONOCYTES # (AUTO) 0.9 K/uL (0.1-1.30); MONOCYTES % (AUTO) 10.4 % (2.0-12.0); NEUTROPHILS # (AUTO) 6.6 K/uL (1.8-8.9); NEUTROPHILS % (AUTO) 72.6 % (43.0-81.0); PLATELET COUNT (AUTO) 162 K/uL (150-450); RED BLOOD CELL COUNT(AUTO) 5.55 MIL/uL (4.5-6.0); WHITE BLOOD COUNT (AUTO) 9.1 K/uL (4.3-11.0)
[2022-07-27 08:55] LABS: CALCIUM, SERUM 9.9 mg/dL (8.5-10.1); CARBON DIOXIDE 26 mmol/L (21-32); CHLORIDE 102 mmol/L (98-107); CREATININE 1.8 mg/dL (0.6-1.3); GLUCOSE 151 mg/dL (74-106); POTASSIUM 4.4 mmol/L (3.5-5.1); SODIUM SERUM 133 mmol/L (136-145); UREA NITROGEN, BLOOD 44 mg/dL (7-18)
[2022-07-27 09:02] LABS: ALANINE AMINOTRANSFERASE 21 U/L (12-78); ALBUMIN 3.8 g/dL (3.4-5.0); ALKALINE PHOSPHATASE 105 U/L (46-116); ASPARTATE AMINOTRANSFERASE 13 U/L (15-37); BILIRUBIN,DIRECT 0.2 mg/dL (0.0-0.2); BILIRUBIN,TOTAL 0.9 mg/dL (0.2-1.0); TOTAL PROTEIN, SERUM 7.7 g/dL (6.4-8.2)
[2022-07-27 09:03] LABS: LIPASE 1843 U/L (73-393)
--- NOTE | 2022-07-27 09:29 | NUR ---
PT TAKEN TO CT VIA JESSICA
[2022-07-27] MEDS ORDERED: FAMOTIDINE/PF INJ 20 MG/2 ML VIAL IV ONE ×2 (09:30→09:50)
[2022-07-27] MEDS ORDERED: ONDANSETRON HCL/PF 4 MG/2 ML VIAL IVP ONE (09:30)
[2022-07-27] MEDS ORDERED: LIDOCAINE VISCOUS 2% UD 15 ML UDC MM ONE (09:30)
[2022-07-27] MEDS ORDERED: MAG HYDROX/AL HYDROX/SIMETH 30 ML UDC PO ONE (09:30)
[2022-07-27] MEDS ORDERED: ONDANSETRON HCL/PF 4 MG/2 ML VIAL ONE (09:50)
[2022-07-27] MEDS ORDERED: MAG HYDROX/AL HYDROX/SIMETH 30 ML UDC ONE (09:50)
[2022-07-27] MEDS ORDERED: LIDOCAINE VISCOUS 2% UD 15 ML UDC ONE (09:50)
[2022-07-27 09:58] LABS: BILIRUBIN,URINE NEGATIVE (NEGATIVE); COLOR,URINE YELLOW (YELLOW); LEUKOCYTE ESTERASE ,URINE MODERATE (NEGATIVE); NITRITE, URINE NEGATIVE (NEGATIVE); PROTEIN,URINE NEGATIVE (NEGATIVE); UGLUCOSE NEGATIVE (NEGATIVE); UROBILINOGEN,URINE 0.2 EU/dL (0.2)
[2022-07-27 10:23] LABS: WBC,URINE 21-50 /HPF (0-3)
[2022-07-27 10:24] LABS: BACTERIA,URINE Few /HPF (None Seen); SQUAMOUS EPITHELIAL CELL,UR Few /HPF (None Seen)
--- NOTE | 2022-07-27 10:32 | NUR ---
MOVE SHEET SUBMITTED.
--- NOTE | 2022-07-27 10:39 | NUR ---
COVID SWAB DONE SENT TO LAB
[2022-07-27] MEDS ORDERED: ROFL250T PO (10:51)
[2022-07-27] MEDS ORDERED: ZINC50TA65 PO (10:51)
[2022-07-27] MEDS ORDERED: LISI20TA30 PO (10:51)
[2022-07-27] MEDS ORDERED: WARF-58 PO (10:51)
[2022-07-27] MEDS ORDERED: ALLO100T PO (10:51)
[2022-07-27] MEDS ORDERED: METO2.5T7 PO (10:51)
[2022-07-27] MEDS ORDERED: CHOL100043 PO (10:51)
[2022-07-27] MEDS ORDERED: POTA10TA11 PO (10:51)
[2022-07-27] MEDS ORDERED: MORPHINE SULFATE INJ 2 MG/ML DISP.SYRIN IV PRN (11:30)
[2022-07-27] MEDS ORDERED: Z GUARD REMEDY 4 OZ OINT TP PRN (11:30)
[2022-07-27] MEDS ORDERED: TEMAZEPAM 15 MG CAPSULE PO PRN (11:30)
[2022-07-27] MEDS ORDERED: MAGNESIUM HYDROXIDE 30 ML UDC PO PRN (11:30)
[2022-07-27] MEDS ORDERED: MAG HYDROX/AL HYDROX/SIMETH 30 ML UDC PO PRN (11:30)
[2022-07-27] MEDS ORDERED: ONDANSETRON HCL/PF 4 MG/2 ML VIAL IVP PRN (11:30)
[2022-07-27] MEDS ORDERED: IV NS 0.9% 1,000 ML IV PRN (11:30)
[2022-07-27] MEDS ORDERED: CEFTRIAXONE 1GM BAG (ER ONLY) 50 ML IV ONE (11:35)
[2022-07-27] MEDS: CEFTRIAXONE 1 G in IV D5W 50 ML IV SCH (11:37)
[2022-07-27] MEDS ORDERED: CEFTRIAXONE 1 G in IV D5W 50 ML IV ONE (13:00)
--- NOTE | 2022-07-27 16:17 | NUR ---
ROOM 320-1
--- NOTE | 2022-07-27 16:24 | NUR ---
PT REPORT GIVEN TO CHANDNI RAINEY
--- NOTE | 2022-07-27 17:48 | NUR ---
PT TRANSFERRED TO 320 VIA GURNEY. WARM HANDOFF GIVEN TO RN ASSIGNED.
--- NOTE | 2022-07-27 18:54 | NUR ---
RN NOTES PATIENT CAME IN AROUND 181 VIA GURNEY FOR ER , BODY ASSESSMENT DONE AND V/S TAKEN , BP 129/85, P 84, O2SAT 96 %ROOM AIR , 98 TEMP , RR 18
--- NOTE | 2022-07-27 19:30 | NUR ---
RN NOTE PT RECEIVED IN BED PT ROOM AIR TOLERATING WELL NO PAIN OR DISCOMFORT. PER PT HE IS ABLE TO TOLERATE CLEAR LIQUIDS AT THIS TIME HAD DINNER WITH NO N/V. NO PAIN OR DISCOMFORT REPORTED. PT PLACE ON TELE MONITOR V PACING. L HAND 20G S/L IV ACCESS. CALL LIGHT WITHIN REACH. TABLE WITHIN REACH.
[2022-07-27 20:00] VITALS: BP 123/57
[2022-07-28] VITALS: BP 106/65
[2022-07-28 04:00] VITALS: BP 111/77
[2022-07-28 06:06] LABS: BASOPHILS # (AUTO) 0.1 K/uL (0.0-0.2); EOSINOPHILS % (AUTO) 3.9 % (0.0-6.0); HEMATOCRIT 47 % (39-51); HEMOGLOBIN 15.2 g/dL (13.5-17.5); LYMPHOCYTES # (AUTO) 1.3 K/uL (0.8-4.8); LYMPHOCYTES % (AUTO) 17.2 % (20.0-44.0); MEAN CORPUSCULAR HGB CONC 33 g/dl (31.0-36.0); MEAN CORPUSCULAR VOLUME 91 fL (80-96); MONOCYTES # (AUTO) 1.1 K/uL (0.1-1.30); NEUTROPHILS # (AUTO) 4.9 K/uL (1.8-8.9); NEUTROPHILS % (AUTO) 63.9 % (43.0-81.0); PLATELET COUNT (AUTO) 136 K/uL (150-450); RED BLOOD CELL COUNT(AUTO) 5.08 MIL/uL (4.5-6.0); WHITE BLOOD COUNT (AUTO) 7.6 K/uL (4.3-11.0)
[2022-07-28 06:29] LABS: THYROID STIMULATING HORMONE 1.109 uIU/mL (0.358-3.74)
--- NOTE | 2022-07-28 06:34 | NUR ---
RN NOTE PT IN BED PT ROOM AIR TOLERATING WELL NO PAIN OR DISCOMFORT. PER PT HE IS ABLE TO TOLERATE CLEAR LIQUIDS WITH NO N/V. NO PAIN OR DISCOMFORT REPORTED. PT PLACE ON TELE MONITOR V PACING. L HAND 20G S/L IV ACCESS. CALL LIGHT WITHIN REACH. TABLE WITHIN REACH.
[2022-07-28 06:48] LABS: CALCIUM, SERUM 9.6 mg/dL (8.5-10.1); CARBON DIOXIDE 28 mmol/L (21-32); CHLORIDE 101 mmol/L (98-107); CREATININE 1.5 mg/dL (0.6-1.3); GLUCOSE 128 mg/dL (74-106); MAGNESIUM 1.9 mg/dL (1.8-2.4); PHOSPHORUS 2.7 mg/dL (2.5-4.9); POTASSIUM 4.6 mmol/L (3.5-5.1); SODIUM SERUM 133 mmol/L (136-145); UREA NITROGEN, BLOOD 33 mg/dL (7-18)
[2022-07-28 06:59] LABS: LIPASE 1613 U/L (73-393)
--- NOTE | 2022-07-28 07:30 | NUR ---
RN Opening Note Patient AOx4 able to express his own concerns. Made patient aware of care plan, verbalized agreement. Patient states [id number] will be calling and it is ok to provide health information. Ptient with no signs of distress or discomfort. Will continue to monitor throughout shift, provide care as needed. All safety precautions taken, call light and table within reach, bed at lowest position.
--- NOTE | 2022-07-28 07:30 | NUR ---
RN Receiving Report. Not able to assess patients mental status, patient non-verbal. Using FLACC , patients pain is 0/10. No signs of discomfort, no signs of distress. Peripherla IV and Mid line in place with no signs of infiltration. Will continue to monitor throughout shift, provide care as needed. All safety precautions taken, call light and table within reach, bed at lowest position. Addendum: 07/28/22 at 1603 by ORLANDO REINA RN Wrong Assessment
[2022-07-28 08:00] VITALS: BP 113/73
[2022-07-28] MEDS: PANTOPRAZOLE 40 MG VIAL IV SCH (08:33)
[2022-07-28] MEDS: CEFTRIAXONE 1 G in IV D5W 50 ML IV SCH (11:32)
[2022-07-28] MEDS ORDERED: ICOS1CAP PO (13:15)
[2022-07-28] MEDS: ENOXAPARIN SODIUM 40 MG/0.4 ML DISP.SYRIN SQ SCH (15:46)
[2022-07-28 16:06] VITALS: BP 129/91
--- NOTE | 2022-07-28 18:13 | NUR ---
RN Closing Note Patient AOx4, able to express his own concerns. at bedside providing companionship. Patient was able to ambulate in room, stable gait. Patient educated on importance of fall precautions. Patient states he is ready for discharge, but agrees if physician wants to keep him another day. All safety precautions taken throughout shift, call light and table within reach, bed at lowest position. Patient remained safe and stable throughout shift.
--- NOTE | 2022-07-28 19:40 | NUR ---
RN OPENING NOTE PATIENT RECEIVED AWAKE IN BED. A/OX4. NO S/S OF DISTRESS, BREATHING WITHOUT DIFFICULTY ON ROOM AIR. R-HAND #20 SL INTACT AND PATENT. TELE READS V-PACING W/ PVCs 90. SAFETY MEASURES IN PLACE: BED LOCKED IN PLACE AND AT LOWEST POSITION, RAILS UP X2, CALL JOHNSON WITHIN REACH. WILL CONTINUE TO MONITOR PATIENT.
[2022-07-28 20:00] VITALS: BP 118/70
[2022-07-29] VITALS: BP 115/81
[2022-07-29 04:00] VITALS: BP 111/59
--- NOTE | 2022-07-29 04:00 | NUR ---
RN NOTE PATIENT HAS BEEN EDUCATED ON THE IMPORTANCE OF HIS IV ACCESS. PATIENT CONTINUED TO PULL AT AND MOVE THE IV ACCESS. CURRENTLY MILD BLEEDING NOTED. IV ACCESS WAS REMOVED, HAND CLEANED, PRESSURE DRESSING APPLIED. ALL COMPONENTS OF IV INCLUDING CATH WERE RECOVERED. NEW IV INSERTED SUCCESSFULLY IN LEFT HAND #20. PATIENT RE-EDUCATED ON SAFETY AND IMPORTANCE OF IV ACCESS WHILE PRESENT AT THE HOSPITAL. PATIENT ACKNOWLEDGED INSTRUCTION. PATIENT STABLE; WILL CONTINUE TO MONITOR PATIENT.
[2022-07-29 05:51] LABS: BASOPHILS # (AUTO) 0.1 K/uL (0.0-0.2); EOSINOPHILS % (AUTO) 3.9 % (0.0-6.0); HEMATOCRIT 47 % (39-51); HEMOGLOBIN 15.6 g/dL (13.5-17.5); LYMPHOCYTES # (AUTO) 1.2 K/uL (0.8-4.8); LYMPHOCYTES % (AUTO) 17.8 % (20.0-44.0); MEAN CORPUSCULAR HGB CONC 33 g/dl (31.0-36.0); MEAN CORPUSCULAR VOLUME 91 fL (80-96); MONOCYTES % (AUTO) 13.9 % (2.0-12.0); NEUTROPHILS # (AUTO) 4.4 K/uL (1.8-8.9); NEUTROPHILS % (AUTO) 63.4 % (43.0-81.0); PLATELET COUNT (AUTO) 131 K/uL (150-450); RED BLOOD CELL COUNT(AUTO) 5.18 MIL/uL (4.5-6.0)
[2022-07-29 06:11] LABS: CALCIUM, SERUM 9.5 mg/dL (8.5-10.1); CARBON DIOXIDE 28 mmol/L (21-32); CHLORIDE 103 mmol/L (98-107); CREATININE 1.5 mg/dL (0.6-1.3); GLUCOSE 128 mg/dL (74-106); MAGNESIUM 1.8 mg/dL (1.8-2.4); PHOSPHORUS 2.4 mg/dL (2.5-4.9); POTASSIUM 4.1 mmol/L (3.5-5.1); SODIUM SERUM 138 mmol/L (136-145); UREA NITROGEN, BLOOD 29 mg/dL (7-18)
[2022-07-29 06:16] LABS: LIPASE 1547 U/L (73-393)
--- NOTE | 2022-07-29 06:17 | NUR ---
RN CLOSING NOTE PATIENT AWAKE IN BED. A/OX4. NO S/S OF DISTRESS, BREATHING WITHOUT DIFFICULTY ON ROOM AIR. L-HAND #20 SL INTACT AND PATENT. TELE READS V-PACING WITH OCCASIONAL PVCs 78. SAFETY MEASURES IN PLACE: BED LOCKED AND AT LOWEST POSITION, RAILS UP X2, CALL JOHNSON WITHIN REACH. WILL ENDORSE TO NEXT SHIFT FOR DELMY.
--- NOTE | 2022-07-29 07:49 | NUR ---
RN OPENING NOTE RECEIVED PATIENT AWAKE IN BED. PATIENT IS A/OX4. NO S/S OF DISTRESS NOTED , BREATHING EVEN AND UNLABORED. ON ROOM AIR. LEFT -HAND #20 SL INTACT AND PATENT. ON TELE MONITOR READS V-PACING W/ PVCs 80. ALL SAFETY MEASURES IN PLACE: BED LOCKED IN PLACE AND AT LOWEST POSITION, RAILS UP X2, CALL JOHNSON WITHIN REACH. WILL CONTINUE TO MONITOR PATIENT.
[2022-07-29 08:00] VITALS: BP 115/84
[2022-07-29] MEDS: PANTOPRAZOLE 40 MG VIAL IV SCH (08:31)
[2022-07-29] MEDS: ENOXAPARIN SODIUM 40 MG/0.4 ML DISP.SYRIN SQ SCH (08:35)
[2022-07-29] MEDS: CEFTRIAXONE 1 G in IV D5W 50 ML IV SCH (11:15)
[2022-07-29] MEDS ORDERED: NEUTRA PHOS 1 POWD.PACKET PO ONE (12:00)
[2022-07-29] MEDS: ACETAMINOPHEN 325 MG TABLET PO PRN (14:00)
[2022-07-29 16:00] VITALS: BP 130/94
[2022-07-29] MEDS ORDERED: SPIR25TA6 PO (17:24)
--- NOTE | 2022-07-29 18:45 | NUR ---
RN CLOSING NOTE PATIENT AWAKE IN BED. PATIENT IS A/OX4. NO S/S OF DISTRESS NOTED , BREATHING EVEN AND UNLABORED. ON ROOM AIR. LEFT -HAND #20 SL INTACT AND PATENT. ON TELE MONITOR READS V-PACING W/ PVCs 80 'S 100'S. ALL DUE MEDS GIVEN ORDERED. 2 GRAND DAUGHTERS AT THE BED SIDE.ALL SAFETY MEASURES IN PLACE: BED LOCKED IN PLACE AND AT LOWEST POSITION, RAILS UP X2, CALL JOHNSON WITHIN REACH. WILL ENDORSE FOR DELMY.
[2022-07-29 20:00] VITALS: BP 129/89
--- NOTE | 2022-07-29 22:32 | NUR ---
RN OPENING NOTE PATIENT AWAKE IN BED. A/OX4. NO S/S OF DISTRESS, BREATHING WITHOUT DIFFICULTY ON ROOM AIR. L-HAND #20 INTACT AND PATENT. TELE READS V-PACING W/ BBB 98. SAFETY MEASURES IN PLACE: BED LOCKED AND IN LOWEST POSITION, RAILS UP X2, CALL JOHNSON WITHIN REACH. WILL CONTINUE TO MONITOR PATIENT.
[2022-07-30] VITALS: BP 96/67
[2022-07-30 04:00] VITALS: BP 108/74
[2022-07-30] MEDS: ACETAMINOPHEN 325 MG TABLET PO PRN (05:25)
[2022-07-30 07:00] LABS: BASOPHILS % (AUTO) 0.6 % (0.0-2.0); HEMATOCRIT 46 % (39-51); HEMOGLOBIN 15.3 g/dL (13.5-17.5); LYMPHOCYTES # (AUTO) 0.8 K/uL (0.8-4.8); LYMPHOCYTES % (AUTO) 15.9 % (20.0-44.0); MEAN CORPUSCULAR HGB CONC 34 g/dl (31.0-36.0); MEAN CORPUSCULAR VOLUME 91 fL (80-96); MONOCYTES # (AUTO) 0.8 K/uL (0.1-1.30); MONOCYTES % (AUTO) 16.3 % (2.0-12.0); NEUTROPHILS # (AUTO) 3.2 K/uL (1.8-8.9); NEUTROPHILS % (AUTO) 63.2 % (43.0-81.0); PLATELET COUNT (AUTO) 115 K/uL (150-450); RED BLOOD CELL COUNT(AUTO) 5.03 MIL/uL (4.5-6.0)
[2022-07-30 07:14] LABS: CALCIUM, SERUM 9.8 mg/dL (8.5-10.1); CARBON DIOXIDE 26 mmol/L (21-32); CHLORIDE 103 mmol/L (98-107); CREATININE 1.4 mg/dL (0.6-1.3); GLUCOSE 156 mg/dL (74-106); MAGNESIUM 1.8 mg/dL (1.8-2.4); POTASSIUM 3.8 mmol/L (3.5-5.1); SODIUM SERUM 137 mmol/L (136-145); UREA NITROGEN, BLOOD 26 mg/dL (7-18)
--- NOTE | 2022-07-30 07:30 | NUR ---
RN OPENING NOTE- PATIENT AWAKE IN BED. A/OX4. NO S/S OF DISTRESS, BREATHING WITHOUT DIFFICULTY ON ROOM AIR. DENIES PAIN, BS POSITIVE AND HYPOACTIVE ON AUSCULTATION, L-HAND #20 INTACT. TELE READS V-PACING ST 103. SAFETY MEASURES IN PLACE: BED LOCKED AND IN LOWEST POSITION, RAILS UP X2, CALL JOHNSON WITHIN REACH. WILL CONTINUE TO MONITOR PATIENT/ ASSIST
--- NOTE | 2022-07-30 07:32 | NUR ---
RN CLOSING NOTE PATIENT ASLEEP IN BED. A/OX4. NO S/S OF DISTRESS, BREATHING WITHOUT DIFFICULTY ON ROOM AIR. L-HAND #20 SL INTACT AND PATENT. TELE READS V-PACING W/ BBB AND OCCASIONAL PVCs 90. SAFETY MEASURES IN PLACE: BED LOCKED IN PLACE AND AT LOWEST POSITION, RAILS UP X2, CALL JOHNSON WITHIN REACH. WILL ENDORSE TO NEXT SHIFT FOR DELMY.
[2022-07-30] MEDS: ENOXAPARIN SODIUM 40 MG/0.4 ML DISP.SYRIN SQ SCH (08:52)
[2022-07-30] MEDS ORDERED: PANTOPRAZOLE 40 MG/PACK PACK PO SCH (09:00)
[2022-07-30 09:06] VITALS: BP 118/66
[2022-07-30] MEDS: CEFTRIAXONE 1 G in IV D5W 50 ML IV SCH (11:59)
[2022-07-30 13:43] VITALS: BP 112/78
--- NOTE | 2022-07-30 15:13 | NUR ---
RN NOTE- DISCHARGE. PT DC AT THIS TIME TO HOME WITH SPOUSE. INDUSTRIAL ROOFER CAME AND SAW PT PROVIDING DIETARY CONSULT. DC INSTRUCTIONS GIVEN AND REVIEWED PT FAMILY. VERBALIZED UNDERSTANDING. ID WRISTBAND AND IV SITE REMOVED. ESCORTED OFF UNIT BY STAFF
== END 2022-07-30 15:00 | disposition home or self-care (01) | DRG 438 ==
LOC: ER 08:16 → MED 17:41 → TELE 22:10
PROVIDERS: ADMIT Nurse Practitioner Acute Care; ATTEND Student in an Organized Health Care Education/Training Program
DX: K85.90 Acute pancreatitis without necrosis or infection, unspecified (principal); I50.23 Acute on chronic systolic (congestive) heart failure; N17.0 Acute kidney failure with tubular necrosis; N39.0 Urinary tract infection, site not specified; I13.0 Hypertensive heart and chronic kidney disease with heart failure and stage 1 through stage 4 chronic kidney disease, or unspecified chronic kidney disease; I42.8 Other cardiomyopathies; N20.2 Calculus of kidney with calculus of ureter; I11.0 Hypertensive heart disease with heart failure; N18.9 Chronic kidney disease, unspecified; Z20.822 Contact with and (suspected) exposure to COVID-19; E78.5 Hyperlipidemia, unspecified; I35.0 Nonrheumatic aortic (valve) stenosis; J44.9 Chronic obstructive pulmonary disease, unspecified; I48.0 Paroxysmal atrial fibrillation; N26.1 Atrophy of kidney (terminal); Z87.11 Personal history of peptic ulcer disease; Z95.2 Presence of prosthetic heart valve; Z95.1 Presence of aortocoronary bypass graft; Z95.0 Presence of cardiac pacemaker; Z79.01 Long term (current) use of anticoagulants; Z79.899 Other long term (current) drug therapy; Z87.891 Personal history of nicotine dependence; B96.89 Other specified bacterial agents as the cause of diseases classified elsewhere; Z79.51 Long term (current) use of inhaled steroids; I25.10 Atherosclerotic heart disease of native coronary artery without angina pectoris; E66.9 Obesity, unspecified; Z68.35 Body mass index [BMI] 35.0-35.9, adult; R16.0 Hepatomegaly, not elsewhere classified
CPT/HCPCS: 36415; 76705-TC; 80048-TC; 80076-TC; 81001; 83690-TC; 83735-TC; 84100-TC; 84443-TC; 85025-TC; 87081-TC; 87086-TC; 93307-TC; C9113; C9803; G0378; J0696; J1650; J2405; J3490; J7030; J7040; J7050; J7060

== ENCOUNTER 2022-08-16 08:18 | Inpatient (IN) | payer MEDICARE, OTHER ==
[~2022-08-16] VITALS: Ht 167.6 cm; Wt 104.3 kg
[~2022-08-16 08:18] MED LIST changes: +ALLO100T PO; +CHOL100043 PO; -FEBU40TA PO; +ICOS1CAP PO; +LISI20TA30 PO; +METO2.5T7 PO; +POTA10TA11 PO; +ROFL250T PO; +SPIR25TA6 PO; +WARF-58 PO; +ZINC50TA65 PO
--- NOTE | 2022-08-16 08:18 | NUR ---
BIB RA839 FROM HOME C/O ABDOMINAL PAIN, WEAKNESS, VOMITING X5 DAYS DENIES DIARRHEA, PT IS AFEBRILE. PT ATTACHED TO MONITOR, HEART RATE ELEVATED, MD AWARE. WARM BLNAKET PROVIDED FOR COMFORT. AWAITING MD ORDERS.
[2022-08-16] MEDS ORDERED: MORPHINE SULFATE INJ 4 MG/ML DISP.SYRIN ONE (08:49)
[2022-08-16] MEDS ORDERED: ONDANSETRON HCL/PF 4 MG/2 ML VIAL ONE ×2 (08:49→13:55)
[2022-08-16] MEDS ORDERED: IV NS 0.9% 1,000 ML BAG IV ONE (09:00)
[2022-08-16] MEDS ORDERED: ONDANSETRON HCL/PF 4 MG/2 ML VIAL IVP ONE (09:00)
[2022-08-16] MEDS ORDERED: MORPHINE SULFATE INJ 2 MG/ML DISP.SYRIN IV ONE (09:00)
[2022-08-16 09:18] LABS: BASOPHILS % (AUTO) 0.1 % (0.0-2.0); HEMATOCRIT 52 % (39-51); HEMOGLOBIN 16.8 g/dL (13.5-17.5); LYMPHOCYTES # (AUTO) 1.6 K/uL (0.8-4.8); LYMPHOCYTES % (AUTO) 6.3 % (20.0-44.0); MEAN CORPUSCULAR HGB CONC 33 g/dl (31.0-36.0); MEAN CORPUSCULAR VOLUME 89 fL (80-96); MONOCYTES # (AUTO) 2.3 K/uL (0.1-1.30); MONOCYTES % (AUTO) 9.3 % (2.0-12.0); NEUTROPHILS % (AUTO) 84.3 % (43.0-81.0); PLATELET COUNT (AUTO) 303 K/uL (150-450); RED BLOOD CELL COUNT(AUTO) 5.81 MIL/uL (4.5-6.0); WHITE BLOOD COUNT (AUTO) 24.9 K/uL (4.3-11.0)
[2022-08-16 09:39] LABS: CALCIUM, SERUM 10.7 mg/dL (8.5-10.1); CARBON DIOXIDE 23 mmol/L (21-32); CHLORIDE 98 mmol/L (98-107); CREATININE 2.2 mg/dL (0.6-1.3); GLUCOSE 181 mg/dL (74-106); SODIUM SERUM 132 mmol/L (136-145); UREA NITROGEN, BLOOD 72 mg/dL (7-18)
[2022-08-16 09:44] LABS: ALANINE AMINOTRANSFERASE 24 U/L (12-78); ALBUMIN 2.9 g/dL (3.4-5.0); ALKALINE PHOSPHATASE 95 U/L (46-116); ASPARTATE AMINOTRANSFERASE 17 U/L (15-37); BILIRUBIN,DIRECT 0.3 mg/dL (0.0-0.2); BILIRUBIN,TOTAL 1.3 mg/dL (0.2-1.0); TOTAL PROTEIN, SERUM 7.8 g/dL (6.4-8.2)
--- NOTE | 2022-08-16 09:51 | NUR ---
FOLLOWED UP URINE, STILL UNABLE TO GIVE AT THIS TIME
--- NOTE | 2022-08-16 10:05 | NUR ---
ULTRASOUND AT BEDSIDE
--- NOTE | 2022-08-16 10:28 | NUR ---
COVID SWAB COLLECTED AND SENT TO LAB
[2022-08-16] MEDS ORDERED: IV NS 0.9% 1,000 ML IV ONE ×3 (10:30→21:30)
[2022-08-16] MEDS ORDERED: PIPERACILLIN /TAZOBACTAM 3.375 G in IV D5W 50 ML IV ONE (10:30)
--- NOTE | 2022-08-16 10:30 | NUR ---
PT TAKEN TO RADIOLOGY FOR CT
--- NOTE | 2022-08-16 11:10 | NUR ---
MOVE SHEET SUBMITTED.
--- NOTE | 2022-08-16 11:15 | NUR ---
PT UNABLE TO PROVIDE URINE AT THIS TIME; URINAL AT BEDSIDE
--- NOTE | 2022-08-16 11:25 | NUR ---
SURGERY VOLUNTEER SPECIALIST PAGED.
--- NOTE | 2022-08-16 11:31 | NUR ---
DR. WAKEFIELD ON THE PHONE WITH DR. BOBBY.
--- NOTE | 2022-08-16 12:11 | NUR ---
CALLED [facility], THEY ARE AT [place].
--- NOTE | 2022-08-16 12:16 | NUR ---
CALLED [facility]. THEY ARE AT [facility].
[2022-08-16 12:25] LABS: LIPASE 609 U/L (73-393)
--- NOTE | 2022-08-16 12:28 | NUR ---
[facility] IS AT [facility].
--- NOTE | 2022-08-16 13:08 | NUR ---
LEFT HAND #22 IV LINE INSERTED.
--- NOTE | 2022-08-16 13:10 | NUR ---
CALLED [facility] [place] [phone] FAXED CLINICALS TO [phone]
--- NOTE | 2022-08-16 13:52 | NUR ---
FAXED CLINICALS TO [facility]: [phone]
--- NOTE | 2022-08-16 13:52 | NUR ---
CALLED [facility] AND FAXED CLINICALS. THEY ARE AT [place].
[2022-08-16] MEDS ORDERED: ONDANSETRON HCL/PF 4 MG/2 ML VIAL IV ONE (14:00)
--- NOTE | 2022-08-16 14:34 | NUR ---
CALLED [facility] SPOKE TO JUSTINA, CONFIRMED RECIEVING CLINICALS FAXED. CASE UNDER REVIEW.
--- NOTE | 2022-08-16 15:14 | NUR ---
CALLED [facility] AND WAS MADE AWARE OF PT STATUS AND PT CLINICALS. FAXED PT CLINICALS TO [phone]. AWAITING A CALL BACK WITH ANY FEEDBACK OR A ACCEPTING MD
--- NOTE | 2022-08-16 15:38 | NUR ---
PT INFO PROVIDED TO [facility] OF [facility]; WILL PRESENT CASE AND WILL CALL BACK IF PT IS ACCEPTED.
--- NOTE | 2022-08-16 16:19 | NUR ---
SPOKE TO [facility] [phone] [facility] AND ASKED CLINICALS AND COVID TEST TO BE FAXED TO [phone]
--- NOTE | 2022-08-16 16:43 | NUR ---
SPOKE WITH DELMAR [phone] OPT 2 FROM [facility] AND ASKED FOR PREVIOUS VISIT MD CONSULTATIONS TO BE FAXED [phone]
--- NOTE | 2022-08-16 17:09 | NUR ---
MURRAY WILLIS. UNABLE TO TAKE THE PATIENT.
--- NOTE | 2022-08-16 18:46 | NUR ---
PER JOSUE FROM [facility], THEY ARE WAITING ON GI CONSULT.
--- NOTE | 2022-08-16 18:56 | NUR ---
LINDA PICC LINE INSERTED.
--- NOTE | 2022-08-16 20:01 | NUR ---
RECEIVED PT IN BED 9. PT IS RESTING COMFORTABLY IN BED WITH EYES OPEN. RR EVEN AND NONLABORED. AAOX4. DENIES ANY DISCOMFORT AT THIS TIME. CONNECTED TO POX AND HEART MONITOR. VITAL SIGNS WITHIN NORMAL LIMITS. WILL CONTINUE TO MONITOR.
--- NOTE | 2022-08-16 20:59 | NUR ---
S/W: [place] [phone] PRATHER ACCEPTED TO [facility] , BUT NO BEDS AVAILABLE AT THIS TIME
[2022-08-16 21:40] LABS: BILIRUBIN,URINE 1+ (NEGATIVE); COLOR,URINE YELLOW (YELLOW); LEUKOCYTE ESTERASE ,URINE TRACE (NEGATIVE); NITRITE, URINE NEGATIVE (NEGATIVE); PROTEIN,URINE TRACE mg/dl (NEGATIVE); UGLUCOSE NEGATIVE (NEGATIVE); UROBILINOGEN,URINE 0.2 EU/dL (0.2)
--- NOTE | 2022-08-16 21:48 | NUR ---
Elvira an in [place] - 08/16/22 at 2148 by JD 329
[2022-08-16 22:23] LABS: BACTERIA,URINE 1+ /HPF (None Seen); SQUAMOUS EPITHELIAL CELL,UR 0-2 /HPF (None Seen); URINE AMORPHOUS URATE Many /HPF (None Seen)
--- NOTE | 2022-08-16 22:36 | NUR ---
CALLED [facility] FOR TRANSFER UPDATE. PER JOSUE, GI HAS NOT CALLED BACK AND THIS IS GOING TO BE A TRANSFER IN THE MORNING.
[2022-08-17] MEDS ORDERED: MORPHINE SULFATE INJ 2 MG/ML DISP.SYRIN IV PRN
[2022-08-17] MEDS ORDERED: ACETAMINOPHEN 325 MG TABLET PO PRN
[2022-08-17] MEDS ORDERED: ONDANSETRON HCL/PF 4 MG/2 ML VIAL IVP PRN
[2022-08-17] MEDS ORDERED: Z GUARD REMEDY 4 OZ OINT TP PRN
[2022-08-17] MEDS ORDERED: ZOSYN IVPB 3.375 G in IV D5W 50ml IV ONE (01:30)
--- NOTE | 2022-08-17 02:04 | NUR ---
PT IS RESTING COMFORTABLY IN BED, RR EVEN AND NONLABORED. CONNECTED TO POX AND HEART MONITOR. WILL CONTINUE TO MONITOR
[2022-08-17] MEDS ORDERED: PIPERACILLIN /TAZOBACTAM 3.375 G VIAL IV ONE (03:41)
[2022-08-17 05:11] LABS: CALCIUM, SERUM 9.7 mg/dL (8.5-10.1); CARBON DIOXIDE 23 mmol/L (21-32); CHLORIDE 103 mmol/L (98-107); GLUCOSE 156 mg/dL (74-106); MAGNESIUM 2.6 mg/dL (1.8-2.4); PHOSPHORUS 4.7 mg/dL (2.5-4.9); POTASSIUM 4.5 mmol/L (3.5-5.1); SODIUM SERUM 136 mmol/L (136-145); UREA NITROGEN, BLOOD 78 mg/dL (7-18)
[2022-08-17 05:15] LABS: HDL CHOLESTEROL 31 mg/dL (40-60); LDL 39 mg/dL (0-99); TRIGLYCERIDES 78 mg/dL (30-150)
[2022-08-17 05:34] LABS: CHOLESTEROL 82 mg/dL (<200)
--- NOTE | 2022-08-17 05:48 | NUR ---
PT AMBULATED TO BATHROOM WITH MIN ASSIST. STEADY GAIT NOTED
--- NOTE | 2022-08-17 05:59 | NUR ---
S/W NICOL FROM [facility] UPDATED HER ON VITALS AND PTS NO CHANGE IN STATUS. STILL WAITING FOR BED TO BECOME AVAILABLE.
--- NOTE | 2022-08-17 07:15 | NUR ---
Received pt from [facility] pt awake and alert asleepy no distres no abdminale pain
--- NOTE | 2022-08-17 07:21 | NUR ---
REPORT GIVEN TO [facility] FOR DELMY
--- NOTE | 2022-08-17 07:24 | NUR ---
daughter (idalia) [phone] (cell phone) - Camilo to call
--- NOTE | 2022-08-17 08:07 | NUR ---
[facility] [phone] .
[2022-08-17] MEDS ORDERED: PANTOPRAZOLE 40 MG VIAL ONE (08:17)
[2022-08-17] MEDS: PANTOPRAZOLE 40 MG VIAL IV SCH (08:21)
[2022-08-17 08:38] LABS: BASOPHILS % (AUTO) 0.2 % (0.0-2.0); EOSINOPHILS % (AUTO) 0.1 % (0.0-6.0); HEMATOCRIT 45 % (39-51); HEMOGLOBIN 14.8 g/dL (13.5-17.5); LYMPHOCYTES # (AUTO) 1.2 K/uL (0.8-4.8); LYMPHOCYTES % (AUTO) 6.4 % (20.0-44.0); MEAN CORPUSCULAR HGB CONC 33 g/dl (31.0-36.0); MEAN CORPUSCULAR VOLUME 89 fL (80-96); MONOCYTES # (AUTO) 2.1 K/uL (0.1-1.30); MONOCYTES % (AUTO) 11.3 % (2.0-12.0); NEUTROPHILS # (AUTO) 15.4 K/uL (1.8-8.9); PLATELET COUNT (AUTO) 262 K/uL (150-450); RED BLOOD CELL COUNT(AUTO) 5.07 MIL/uL (4.5-6.0); WHITE BLOOD COUNT (AUTO) 18.8 K/uL (4.3-11.0)
--- NOTE | 2022-08-17 08:50 | NUR ---
[facility] transfer line called - no capacity
--- NOTE | 2022-08-17 09:08 | NUR ---
Resting and asleepy no abdominal pain
--- NOTE | 2022-08-17 09:10 | NUR ---
WATING FOR tametery bed pt aWAKE AND ALERT NO PAIN
--- NOTE | 2022-08-17 09:42 | NUR ---
ROOM 304-1
--- NOTE | 2022-08-17 09:42 | NUR ---
GOT BED 304-1
--- NOTE | 2022-08-17 10:10 | NUR ---
PT REPORT GIVEN TO CHANDNI HARGROVE
--- NOTE | 2022-08-17 10:40 | NUR ---
TO ROOM 304-1 VIA garny awake and alert RESPIRATIN SPONT AND EASY dineses abdominal
--- NOTE | 2022-08-17 10:47 | NUR ---
RN NOTE- ADMISSION FROM ED. BROUGHT TO UNIT 304-1. BEGIN ADMISSION
--- NOTE | 2022-08-17 10:50 | NUR ---
ROOF SHINGLER NOTE- 72 Y/O MALE BROUGHT IN BY FAMILY TO ED W ABDOMINAL PAIN. DX - SEPSIS AND PANCREATITIS. PMHX- HX, AORTIC VALVE REPLACEMENT, AFIB, PACEMAKER, KIDNEY STONES, DIVERTICULITIS, PANCREATITIS. PT IS FULL CODE. HE IS NPO AT PRESENT. PICC LINE LINDA. IVF NS AT 100/HR. JUSTO MEJIAS WANTS TO TRANSFER PT TO [facility], FAMILY DOESN'T WANT TRANSFER. FAMILY DISCUSSING W CONCRETE CARPENTER
[2022-08-17] MEDS: IV NS 0.9% 1,000 ML IV PRN ×2 (11:42→23:10)
[2022-08-17 12:00] VITALS: BP 127/76
[2022-08-17] MEDS: PIPERACILLIN /TAZOBACTAM 2.25 G in IV D5W 50 ML IV SCH ×3 (13:53→23:27)
--- NOTE | 2022-08-17 18:42 | NUR ---
RN CLOSING NOTE- PT IS AOX4, AWAITING ACCEPTANCE AT [facility] FOR HIGHER LEVEL OF CARE. CM WORKING W FAMILY AND FACILITY. ALL NEEDS MET. DENIES PAIN, IVF NS AT 100/HR TO L HAND. ABX THERAPY , ICE CHIPS ONLY. BSC AND URINAL IN USE. SIDE RAILS UP, BED LOCKED, CALL LIGHT IN REACH. MONITOR / ASSIST
--- NOTE | 2022-08-17 19:41 | NUR ---
received sitting on the edge of the bed alert and orientated x4 ice chips given to him not c/o of abd pain iv infusing left hand
[2022-08-17 20:00] VITALS: BP 117/81
[2022-08-18] VITALS: BP_SYST 113; BP_SYST 129; BP_DIAS 63; BP_DIAS 80
[2022-08-18 04:00] VITALS: BP_SYST 112; BP_SYST 139; BP_DIAS 68; BP_DIAS 80
--- NOTE | 2022-08-18 04:17 | NUR ---
Closing Notes: Alert and orientated x4 awake most of the night sitting on the edge of the bed uses the urinal NPO as ordered but will requiste ice chips no c/o of ABD pain or N/V
[2022-08-18] MEDS: PIPERACILLIN /TAZOBACTAM 2.25 G in IV D5W 50 ML IV SCH (05:47)
[2022-08-18 07:49] VITALS: BP 136/61
[2022-08-18] MEDS: PANTOPRAZOLE 40 MG VIAL IV SCH (08:20)
[2022-08-18] MEDS: IV NS 0.9% 1,000 ML IV PRN ×2 (10:41→22:41)
[2022-08-18 12:00] VITALS: BP 132/83
--- NOTE | 2022-08-18 12:03 | NUR ---
SOLUTIONS SALES CONSULTANT NOTES PT IN BED, AWAKE, ALERT AND ORIENTED, NO COMPLAINT OF PAIN OR ANY DISCOMFORT, RESPIRATIONS NORMAL, CALL LIGHT WITHIN REACH, SEEN AND EXAMINED BY DR. JARVIS, PLAN OF CARE DISCUSSED WITH PT AND DAUGHTER OVER THE PHONE, VERBALIZED UNDERSTANDING, NEEDS ATTENDED.
[2022-08-18] MEDS ORDERED: MEROPENEM 1 G in IV NS 0.9% 100 ML IV ONE (13:00)
[2022-08-18 16:00] VITALS: BP 112/57
--- NOTE | 2022-08-18 18:30 | NUR ---
RN CLOSING NOTE PT IS AOX4, PATIENT ON O2 AT 2LPM. NO SIGNS OF RESPIRATORY OR CARDIAC DISTRESS. CM WORKING W FAMILY AND FACILITY. ALL NEEDS MET. DUE MEDS GIVEN. DENIES PAIN, IVF NS AT 100/HR TO L HAND INTACT AND INFUSING WELL. BSC AND URINAL IN USE. SIDE RAILS UP, BED LOCKED, CALL LIGHT IN REACH. ENDORSED TO INCOMING SHIFT.
--- NOTE | 2022-08-18 19:30 | NUR ---
RN OPENING NOTE PATIENT IN BED, SITTING AT THE EDGE OF THE BED. PATIENT IS A/O X 4, ABLE TO MAKE NEEDS KNOWN. PATIENT IS ST 150S AT THIS TIME, PATIENT HAS AN AICD, PER PATIENT HE RECEIVED A SHOCK NOT TO LONG AGO. PATIENT IS ON 2 LPM, TOLERATING WELL, BREATHING EVEN AND UNLABORED. PATIENT HAS A PICC LINE ON THE LINDA SALINE LOCKED, FLUSHING WELL. PATIENT ALSO HAS A L HAND 22 G NS AT 100 ML/HR ONGOING. R HAND 20 G SALINE LOCKED. SAFETY MEASURES IN PLACE: BED LOCKED AND IN LOWEST POSITION, CALL LIGHT WITHIN REACH, SIDE RAILS UP. WILL MONITOR PATIENT CLOSELY.
[2022-08-18 20:00] VITALS: BP 135/89
--- NOTE | 2022-08-18 21:45 | NUR ---
RN MAUREEN YEH FROM [facility] PROVIDED AN UPDATE REGARDING PATIENT'S TRANSFER STATUS. PER RAO, PATIENT WILL NOT GE TRANSFERRED TONIGHT THERE ARE NO AVAILABLE BEDS TONIGHT AND FOR CM TO FOLLOW UP IN AM.
[2022-08-19] MEDS ORDERED: DILTIAZEM HCL 25 MG IV IVP ONE ×2 (00:30→07:00)
--- NOTE | 2022-08-19 00:30 | NUR ---
PATIENT'S HR 180S, ST/AFIB. STAT EKG DONE. INFORMED MD AND MADE AWARE OF EKG RESULTS. BP 113/63. MD FREDI SIMS, ORDERED CARDIZEM 5 MG IV PUSH ONCE AND TO REPORT HR AFTER 5 MIN.
--- NOTE | 2022-08-19 00:47 | NUR ---
PATIENT ST 125, IN AND OUT OF AFIB AFTER CARDIZEM IV PUSH. MADE AWARE.
[2022-08-19] MEDS: MEROPENEM 1 G in IV NS 0.9% 100 ML IV SCH ×2 (00:52→13:20)
--- NOTE | 2022-08-19 06:20 | NUR ---
PATIENT IN AFIB HR 150-170S, NOTIFIED MD. FREDI SIMS RETAIL VISUAL MERCHANDISER ORDERED ANOTHER CARDIZEM 5 MG IVP TO MANAGE PATIENT'S HEART RATE. ORDER READ BACK. AWAITING PHARMACY TO VERIFY MED.
[2022-08-19 06:41] LABS: BASOPHILS % (AUTO) 0.2 % (0.0-2.0); HEMATOCRIT 43 % (39-51); HEMOGLOBIN 13.9 g/dL (13.5-17.5); LYMPHOCYTES # (AUTO) 1.2 K/uL (0.8-4.8); LYMPHOCYTES % (AUTO) 5.6 % (20.0-44.0); MEAN CORPUSCULAR HGB CONC 32 g/dl (31.0-36.0); MEAN CORPUSCULAR VOLUME 90 fL (80-96); MONOCYTES # (AUTO) 2.6 K/uL (0.1-1.30); MONOCYTES % (AUTO) 12.3 % (2.0-12.0); NEUTROPHILS # (AUTO) 17.5 K/uL (1.8-8.9); NEUTROPHILS % (AUTO) 81.9 % (43.0-81.0); PLATELET COUNT (AUTO) 173 K/uL (150-450); RED BLOOD CELL COUNT(AUTO) 4.79 MIL/uL (4.5-6.0); WHITE BLOOD COUNT (AUTO) 21.3 K/uL (4.3-11.0)
[2022-08-19 07:02] LABS: ALANINE AMINOTRANSFERASE 23 U/L (12-78); ALBUMIN 2.2 g/dL (3.4-5.0); ALKALINE PHOSPHATASE 73 U/L (46-116); ASPARTATE AMINOTRANSFERASE 25 U/L (15-37); CALCIUM, SERUM 9.5 mg/dL (8.5-10.1); CARBON DIOXIDE 24 mmol/L (21-32); CHLORIDE 107 mmol/L (98-107); CREATININE 1.5 mg/dL (0.6-1.3); GLUCOSE 158 mg/dL (74-106); MAGNESIUM 2.5 mg/dL (1.8-2.4); PHOSPHORUS 2.4 mg/dL (2.5-4.9); POTASSIUM 4.6 mmol/L (3.5-5.1); SODIUM SERUM 139 mmol/L (136-145); TOTAL PROTEIN, SERUM 6.2 g/dL (6.4-8.2); UREA NITROGEN, BLOOD 54 mg/dL (7-18)
--- NOTE | 2022-08-19 07:15 | NUR ---
RN OPENING NOTE PATIENT IN BED, SITTING AT THE EDGE OF THE BED TALKING TO HIS DAUGHTER OVER THE PHONE. PATIENT IS A/O X 4, ABLE TO MAKE NEEDS KNOWN. ON OXYGEN AT 2LPM,BREATHING UNLABORED. PATIENT ON SINUS TACHYCARDIA RANGING FROM 110-120. KEPT COMFORTABLE. HAS A PICC LINE ON THE LINDA SALINE LOCKED, FLUSHING WELL. PATIENT ALSO HAS A IV LINE AT L HAND 22 G. R HAND 20 G SALINE LOCKED. SAFETY MEASURES IN PLACE: BED LOCKED AND IN LOWEST POSITION, CALL LIGHT WITHIN REACH, SIDE RAILS UP. WILL MONITOR PATIENT CLOSELY.
--- NOTE | 2022-08-19 07:30 | NUR ---
CARDIZEM 5 MG GIVEN, HR NOW AFIB UNCONTROLLED 120S. PATIENT NOT IN ANY APPARENT DISTRESS. ENDORSED TO DAY SHIFT NURSE FOR DELMY.
[2022-08-19 08:00] VITALS: BP 115/88
--- NOTE | 2022-08-19 08:00 | NUR ---
SEPARATOR OPERATOR SHELLFISH MEATS NOTES PT AWAKE, ALERT AND ORIENTED, SITTING AT THE EDGE OF BED, NO COMPLAINT OF PAIN OR ANY DISCOMFORT A THIS TIME, CURRENT TELE READING IS UNCONTROLLED AFIB ON THE 130'S, DR. NEGRO INFORMED, AWAITING ORDERS.
[2022-08-19] MEDS ORDERED: PANTOPRAZOLE 40 MG TABLET.DR PO SCH (09:00)
[2022-08-19 09:46] LABS: LIPASE 1514 U/L (73-393)
[2022-08-19] MEDS ORDERED: NEUTRA PHOS 1 POWD.PACKET PO ONE (10:00)
--- NOTE | 2022-08-19 12:37 | NUR ---
SCALP SPECIALIST NOTES PT SEEN AND EXAMINED BY DR. JARVIS, ORDERS GIVEN, NOTED AND CARRIED OUT.
[2022-08-19] MEDS ORDERED: LORAZEPAM 0.5 MG TABLET PO PRN (13:00)
[2022-08-19] MEDS ORDERED: FUROSEMIDE 40 MG/4 ML VIAL IV SCH (13:30)
--- NOTE | 2022-08-19 15:25 | NUR ---
IMPRESSION PRINTER NOTES PT IN BED, AWAKE, ALERT AND ORIENTED, NO COMPLAINT OF PAIN OR ANY DISCOMFORT, ON O2 AT 2LPM VIA NASAL CANULA, O2 SAT OF 95%, NOTED WITH CRACKLES, PT DOES NOT FEEL LIKE EATING AND FEELS WEAK, DR. JARVIS INFORMED, NEW ORDERS RECEIVED, PT TO BE SEEN BY DR. NEGRO, FAMILY AT BEDSIDE AND DECIDED TO TRANSFER PT TO [facility], SAID THEY SPOKE WITH A SPECIALIST THERE TO SEE THE PT, SCHEDULED MERREM IV AND NEW ORDER FOR LASIX GIVEN, TELE BOX REMOVED AND RECEIVED BY TELE CHEF DE FROID, BELONGINGS ACCOUNTED FOR, AMA FORM SIGNED BY , FAMILY ARRANGED FOR THEIR OWN TRANSPORT AMBULANCE, PT PICKED UP BY 2 AMBULANCE PERSONNEL, LEFT IN STABLE CONDITION, DR. JARVIS AND NURSING PHYSICS TUTOR INFORMED.
== END 2022-08-19 15:30 | disposition left against medical advice (07) | DRG 871 ==
LOC: ER 09:20 → TRANSITION 08-17 00:52 → UNDOADMIN 08-17 00:52 → TRANSITION 08-17 07:51 → MED 08-17 07:51 → TELE 08-17 11:06
PROVIDERS: ADMIT Nurse Practitioner Acute Care; ATTEND Nurse Practitioner Acute Care
PROC: 02HV33Z Insertion of Infusion Device into Superior Vena Cava, Percutaneous Approach (ICD-10-PCS; principal; 2022-08-17)
PROC: B548ZZA Ultrasonography of Superior Vena Cava, Guidance (ICD-10-PCS; 2022-08-17)
DX: A41.9 Sepsis, unspecified organism (principal); K65.1 Peritoneal abscess; K85.90 Acute pancreatitis without necrosis or infection, unspecified; N17.0 Acute kidney failure with tubular necrosis; I50.22 Chronic systolic (congestive) heart failure; D68.59 Other primary thrombophilia; I13.0 Hypertensive heart and chronic kidney disease with heart failure and stage 1 through stage 4 chronic kidney disease, or unspecified chronic kidney disease; E87.1 Hypo-osmolality and hyponatremia; E44.0 Moderate protein-calorie malnutrition; N20.1 Calculus of ureter; I31.39 Other pericardial effusion (noninflammatory); I48.91 Unspecified atrial fibrillation; N18.9 Chronic kidney disease, unspecified; K86.89 Other specified diseases of pancreas; I35.0 Nonrheumatic aortic (valve) stenosis; I25.10 Atherosclerotic heart disease of native coronary artery without angina pectoris; I48.0 Paroxysmal atrial fibrillation; Z95.2 Presence of prosthetic heart valve; Z95.0 Presence of cardiac pacemaker; Z79.01 Long term (current) use of anticoagulants; Z79.51 Long term (current) use of inhaled steroids; Z79.899 Other long term (current) drug therapy; Z87.891 Personal history of nicotine dependence; N40.0 Benign prostatic hyperplasia without lower urinary tract symptoms; E78.5 Hyperlipidemia, unspecified; E86.0 Dehydration; E88.09 Other disorders of plasma-protein metabolism, not elsewhere classified; K31.89 Other diseases of stomach and duodenum; N26.1 Atrophy of kidney (terminal); N20.0 Calculus of kidney; K57.30 Diverticulosis of large intestine without perforation or abscess without bleeding; E66.01 Morbid (severe) obesity due to excess calories; Z68.35 Body mass index [BMI] 35.0-35.9, adult; J44.9 Chronic obstructive pulmonary disease, unspecified; I70.0 Atherosclerosis of aorta
CPT/HCPCS: 36415; 71045-TC; 76705-TC; 80048-TC; 80053-TC; 80061-TC; 80076-TC; 81001; 83605-TC; 83690-TC; 83735-TC; 84100-TC; 85025-TC; 87040-TC; 87081-TC; 87086-TC; 94799-TC; C9113; C9803; G0378; J1940; J2185; J2270; J2405; J2543; J3490; J7030; J7060